=== PATIENT | female | born 1990 | race Caucasian/White ===

== ENCOUNTER 2024-04-24 16:51 | Emergency (ER) | payer SELFPAY ==
[~2024-04-24] VITALS: Ht 152.4 cm; Wt 68.0 kg
[2024-04-24 16:55] VITALS: O2SAT 99
[2024-04-24 16:59] VITALS: BP 140/91; PULSE 80; RESP 16; TEMP 37.1; O2SAT 99
[2024-04-24 17:39] LABS: BASOPHILS % 0.8 % (0.0-2.0); EOSINOPHILS % 0.9 % (0.0-5.0); HEMOGLOBIN. 13.7 g/dL (12.0-16.0); LYMPHOCYTES % 37.7 % (20.0-50.0); MEAN CORPUSCULAR HEMOGLOBIN 30.6 pg (28.0-32.0); MEAN CORPUSCULAR HGB CONC 34.3 g/dL (31.0-37.0); MEAN CORPUSCULAR VOLUME 89.3 fL (81.0-99.0); MEAN PLATELET VOLUME 8.7 fl (7.4-10.4); MONOCYTES % 9.7 % (2.0-8.0); NEUTROPHILS % 50.9 % (40.0-76.0); PLATELET 321 x1000/uL (130-400); RED BLOOD CELL COUNT 4.48 mill/uL (4.2-5.4); RED CELL DISTRIBUTION WIDTH 12.9 % (11.6-14.6); WHITE BLOOD COUNT 8.1 x1000/uL (4.5-11.0)
[2024-04-24 17:46] LABS: CHLORIDE 104 mEq/L (98-107); POTASSIUM 3.8 mEq/L (3.5-5.1); SODIUM 137 mEq/L (136-145)
[2024-04-24 17:47] LABS: CARBON DIOXIDE 25 mEq/L (21-32)
[2024-04-24 17:48] LABS: CALCIUM 9.3 mg/dL (8.7-10.4)
[2024-04-24 17:52] LABS: CREATININE 0.7 mg/dL (0.6-1.0)
[2024-04-24 17:53] LABS: GLUCOSE 110 mg/dL (70-105); UREA NITROGEN BLOOD 11 mg/dL (9-23)
[2024-04-24 17:54] LABS: ALANINE AMINOTRANSFERASE 67 IU/L (10-49); ALBUMIN 4.5 g/dL (3.2-4.8); ASPARTATE AMINOTRANSFERASE 33 IU/L (<34)
[2024-04-24 17:55] LABS: BILIRUBIN TOTAL 0.4 mg/dL (0.1-1.0); PROTEIN TOTAL 7.7 g/dL (6.0-8.3)
[2024-04-24 17:56] LABS: BILIRUBIN DIRECT < 0.1 mg/dL (<=3.0)
[2024-04-24 17:57] LABS: HCG SCREEN NEGATIVE
[2024-04-24 20:05] LABS: CLARITY URINE CLEAR (CLEAR); COLOR URINE YELLOW (YELLOW); GLUCOSE URINE NEGATIVE (NEGATIVE); KETONES URINE NEGATIVE (NEGATIVE); LEUKOCYTE ESTERASE URINE 2+ (NEGATIVE); NITRITE URINE NEGATIVE (NEGATIVE); OCCULT BLOOD URINE NEGATIVE (NEGATIVE); PH URINE 6.5 (4.5-8.0); PROTEIN URINE NEGATIVE (NEGATIVE); SPECIFIC GRAVITY URINE 1.008 (1.005-1.030); UROBILINOGEN URINE 0.2 E.U./dL (0.2-1.0)
[2024-04-24 20:16] LABS: BACTERIA URINE 1+; SQUAMOUS EPITHELIAL CELL URINE 3+ /lpf (RARE/1+)
== END 2024-04-24 23:16 | disposition home or self-care (01) ==
LOC: ER 16:51
DX: K57.32 Diverticulitis of large intestine without perforation or abscess without bleeding (principal); Z90.49 Acquired absence of other specified parts of digestive tract; Z90.710 Acquired absence of both cervix and uterus; Z98.890 Other specified postprocedural states
CPT/HCPCS: 36415; 74176; 80048; 80076; 81003; 81025; 84703; 85025; 99284

== ENCOUNTER 2024-07-25 14:13 | Emergency (ER) | payer MEDICAID ==
[~2024-07-25] VITALS: Ht 154.9 cm; Wt 74.0 kg
[2024-07-25 14:21] VITALS: BP 116/72; TEMP 36.6; O2SAT 100
[2024-07-25 14:27] VITALS: PULSE 92; RESP 20; O2SAT 99
[2024-07-25 15:57] LABS: BASOPHILS % 0.5 % (0.0-2.0); EOSINOPHILS % 1.6 % (0.0-5.0); HEMATOCRIT. 37.2 % (36.0-48.0); HEMOGLOBIN. 12.7 g/dL (12.0-16.0); LYMPHOCYTES % 49.9 % (20.0-50.0); MEAN CORPUSCULAR HGB CONC 34.2 g/dL (31.0-37.0); MEAN CORPUSCULAR VOLUME 87.6 fL (81.0-99.0); MEAN PLATELET VOLUME 8.7 fl (7.4-10.4); MONOCYTES % 7.5 % (2.0-8.0); NEUTROPHILS % 40.5 % (40.0-76.0); PLATELET 322 x1000/uL (130-400); RED BLOOD CELL COUNT 4.24 mill/uL (4.2-5.4); RED CELL DISTRIBUTION WIDTH 13.6 % (11.6-14.6); WHITE BLOOD COUNT 6.7 x1000/uL (4.5-11.0)
[2024-07-25 16:10] LABS: CHLORIDE 106 mEq/L (98-107); PARTIAL THROMBOPLASTIN TIME 26.7 sec (23.4-31.0); POTASSIUM 3.5 mEq/L (3.5-5.1); PROTHROMBIN TIME 10.8 sec (9.6-11.0); SODIUM 140 mEq/L (136-145)
[2024-07-25 16:11] LABS: CALCIUM 8.7 mg/dL (8.7-10.4); CARBON DIOXIDE 26 mEq/L (21-32)
[2024-07-25 16:16] LABS: CREATININE 0.5 mg/dL (0.6-1.0); GLUCOSE 103 mg/dL (70-105); UREA NITROGEN BLOOD 11 mg/dL (9-23)
[2024-07-25 16:20] LABS: TROPONIN I HIGH SENSITIVITY < 4 ng/L (3.0-34)
[2024-07-25] MEDS: KETOROLAC 30MG/ML VIAL IM STA (19:52)
[2024-07-25] MEDS: DIPHENHYDRAMINE 50MG/ML VIAL IM STA (19:52)
[2024-07-25] MEDS: PROCHLORPERAZINE 10MG/2ML VIAL IM ONE (19:53)
[2024-07-25] MEDS ORDERED: DIPH25CA83 MT (21:08)
[2024-07-25] MEDS ORDERED: PROC10TA65 MT (21:08)
== END 2024-07-25 21:15 | disposition home or self-care (01) ==
LOC: ER 14:13
DX: G43.909 Migraine, unspecified, not intractable, without status migrainosus (principal); Z90.710 Acquired absence of both cervix and uterus; Z98.890 Other specified postprocedural states
CPT/HCPCS: 99285; 71045; 80048; 81025; 85025; 85610; 85730; 84484; 36415; 93005; 96372; J1885; J1200; J0780

== ENCOUNTER 2024-11-13 09:09 | Emergency (ER) | payer MEDICAID ==
[~2024-11-13] VITALS: Ht 160 cm; Wt 75.0 kg
[~2024-11-13 09:09] MED LIST: DIPH25CA83 MT; PROC10TA65 MT
[2024-11-13 09:17] VITALS: O2SAT 98
[2024-11-13] MEDS ORDERED: IBUP-2029 MT (10:25)
[2024-11-13 11:28] VITALS: BP 154/85; PULSE 80; RESP 16; TEMP 36.7; O2SAT 98
== END 2024-11-13 11:29 | disposition home or self-care (01) ==
LOC: ER 09:09
DX: S93.401A Sprain of unspecified ligament of right ankle, initial encounter (principal); Z90.710 Acquired absence of both cervix and uterus; Z98.890 Other specified postprocedural states; Z79.899 Other long term (current) drug therapy; X50.1XXA Overexertion from prolonged static or awkward postures, initial encounter
CPT/HCPCS: 73610; 99283